=== PATIENT | female | born 1960 | race Caucasian/White ===

== ENCOUNTER 2020-02-18 17:03 | Inpatient (IN) | payer BC ==
[~2020-02-18] VITALS: Ht 162.6 cm; Wt 62.9 kg
--- NOTE | 2020-02-18 17:22 | NUR ---
BIB [facility], PT FROM [place]. DX WITH L CELLEBELLAR CVA. SYMTOMS BEGAN AT 0200 THIS AM, PT OUTSIDE WINDOW FOR TPA ADMIN. PT ARRIVES NEURO INTACT, PT DOES HAVE DIZZINESS THAT REMAINS. BP ELEVATED 183/87, PER EMS THIS HAS BEEN PT NORM
--- NOTE | 2020-02-18 18:01 | NUR ---
ERMD IN TO EVAL PT
[2020-02-18 18:23] LABS: BASOPHILS # (AUTO) 0.04 x10^3/uL (0-0.1); BASOPHILS % (AUTO) 0 % (0-1); EOSINOPHILS % (AUTO) 1 % (1-7); LYMPHOCYTES # (AUTO) 1.64 x10^3/uL (1-3.4); LYMPHOCYTES % (AUTO) 19 % (22-44); MD NO; MEAN CORPUSCULAR HEMOGLOBIN 34.6 pg (27.0-34.8); MEAN CORPUSCULAR HGB CONC 34.1 g/dL (32.4-35.8); MEAN CORPUSCULAR VOLUME 101.6 fL (80-100); MEAN PLATELET VOLUME 8.1 fL (7.4-10.4); MONOCYTES # (AUTO) 0.68 x10^3/uL (0.2-0.8); MONOCYTES % (AUTO) 8 % (2-9); NEUTROPHILS # (AUTO) 6.15 x10^3/uL (1.8-6.8); NEUTROPHILS % (AUTO) 71 % (42-75); PLATELET COUNT 303 x10^3/uL (130-400); RED BLOOD COUNT 3.49 x10^6/uL (3.82-5.3); RED CELL DISTRIBUTION WIDTH 13.4 % (9.6-15.2)
[2020-02-18 18:30] LABS: INTERNATIONAL NORMALIZED RATIO 0.97 (0.93-1.1)
[2020-02-18] MEDS ORDERED: OMNIPAQUE 350 MG/ML, 100ML BOTTLE ONE ×2 (18:47)
--- NOTE | 2020-02-18 18:54 | NUR ---
BEDSIDE REPORT FROM ALON WONG. PT CARE TRANSFERRED AT THIS TIME. PT SITTING UP ON GURNEY, APPEARS COMFORTABLE, STATES SHE WANTS SOME WATER, PT NAD, STATES SHE WAS SENT OVER HERE FROM [place] AFTER HAVING HAVING A STROKE. PT WOKE UP THIS AM WITH LEFT LEG NUMBNESS AND WENT BACK TO SLEEP THEN WAS DIZZY WHEN SHE OFFICIALLY GOT UP AND WENT TO [place] WHERE MRI FOUND A LEFT SIDE STROKE. PT HAS NO NOTICABLE DEFICITS AT THIS TIME. STATES NUMBESS HAS RESOLVED. PT TO BE ADMITTED, WCTM. WAITING FOR ADMIT BED.
[2020-02-18] MEDS ORDERED: BUPR300T94 PO (19:07)
[2020-02-18] MEDS ORDERED: LOSA25TA25 PO (19:07)
[2020-02-18] MEDS ORDERED: CITA20TA6 PO (19:07)
[2020-02-18] MEDS ORDERED: FOLI0.4T2 PO (19:07)
--- NOTE | 2020-02-18 19:07 | NUR ---
pt given water per request. NAD, ambulated to and from restroom with a smooth and steady gait. WCTM. no change in condition
--- NOTE | 2020-02-18 19:54 | NUR ---
REPORT CALLED UP TO MILI WONG. PT RESTING ON MINH, JAIDEN, NO CHANGE IN CONDITION, WAITING FOR ROOM TO BE CLEANED, WCTM.
[2020-02-18] MEDS ORDERED: ASPIRIN 325 MG TABLET PO ONE (19:57)
[2020-02-18] MEDS ORDERED: PROMETHAZINE 25 MG/ML, 1ML IM PRN (21:00)
[2020-02-18] MEDS ORDERED: POLYETHYLENE GLYCOL 17 GM PACKET PO PRN (21:00)
[2020-02-18] MEDS ORDERED: ACETAMINOPHEN 325 MG TABLET PO PRN (21:00)
[2020-02-18] MEDS ORDERED: ONDANSETRON 2MG/ML, 2ML IVPush PRN (21:00)
[2020-02-18] MEDS ORDERED: BISACODYL 10 MG SUPP PR PRN (21:00)
[2020-02-18] MEDS ORDERED: ONDANSETRON ODT 4 MG PO PRN (21:00)
[2020-02-18] MEDS ORDERED: DOCUSATE 100 MG CAPSULE PO PRN (21:00)
[2020-02-18] MEDS ORDERED: HYDROcodone/APAP 5/325 TABLET PO PRN (21:00)
[2020-02-18] MEDS ORDERED: hydrALAzine 20 MG/ML, 1ML IVPush PRN (21:00)
[2020-02-18] MEDS ORDERED: ATORVASTATIN 40 MG TABLET PO SCH (21:00)
[2020-02-18 21:07] LABS: CHOL/HDL RATIO 2.1; FREE T4 (FREE THYROXINE) 0.82 ng/dL (0.76-1.46); LDL/HDL RATIO 0.7 (0.5-3.0)
[2020-02-18 21:35] VITALS: BP 169/90
[2020-02-18 21:36] VITALS: BP 169/90
[2020-02-18] MEDS: HEPARIN 5,000 UNITS/ML, 1ML SQ SCH (21:54)
[2020-02-19 02:00] VITALS: BP 157/78
[2020-02-19 05:16] LABS: BASOPHILS # (AUTO) 0.03 x10^3/uL (0-0.1); BASOPHILS % (AUTO) 0 % (0-1); EOSINOPHILS % (AUTO) 3 % (1-7); LYMPHOCYTES # (AUTO) 2.15 x10^3/uL (1-3.4); LYMPHOCYTES % (AUTO) 28 % (22-44); MD NO; MEAN CORPUSCULAR HEMOGLOBIN 33.9 pg (27.0-34.8); MEAN CORPUSCULAR VOLUME 102.7 fL (80-100); MEAN PLATELET VOLUME 7.9 fL (7.4-10.4); MONOCYTES % (AUTO) 8 % (2-9); NEUTROPHILS # (AUTO) 4.63 x10^3/uL (1.8-6.8); NEUTROPHILS % (AUTO) 61 % (42-75); PLATELET COUNT 274 x10^3/uL (130-400); RED BLOOD COUNT 3.43 x10^6/uL (3.82-5.3); RED CELL DISTRIBUTION WIDTH 13.4 % (9.6-15.2)
[2020-02-19 05:26] LABS: ANION GAP 3 mmol/L (5-15); CALCIUM 8.8 mg/dL (8.5-10.1); CHLORIDE 113 mmol/L (98-107)
[2020-02-19 05:31] LABS: ALANINE AMINOTRANSFERASE 35 U/L (12-78); ALKALINE PHOSPHATASE 30 U/L (45-117); BILIRUBIN,TOTAL 0.3 mg/dL (0.2-1.0); CHOL/HDL RATIO 2.4; CHOLESTEROL, TOTAL 138 mg/dL (140-239); CREATININE 0.95 mg/dL (0.55-1.02); HDL CHOL % 42 % (28-40); HDL CHOLESTEROL (DIRECT) 58 mg/dL (40-60); LDL CHOLESTEROL,CALCULATED 47 mg/dL (54-169); LDL/HDL RATIO 0.8 (0.5-3.0); TOTAL PROTEIN 6.2 g/dL (6.4-8.2); TRIGLYCERIDES 163 mg/dL (50-200); VLDL CHOLESTEROL 33 mg/dL (0-25)
[2020-02-19] MEDS: HEPARIN 5,000 UNITS/ML, 1ML SQ SCH ×2 (05:37→13:12)
[2020-02-19] MEDS ORDERED: ASPIRIN 81 MG TABLET EC PO SCH (06:00)
[2020-02-19 07:19] VITALS: BP 168/89
[2020-02-19 08:23] VITALS: BP 157/93
[2020-02-19] MEDS ORDERED: FOLIC ACID 1 MG TABLET PO SCH (09:00)
[2020-02-19] MEDS ORDERED: CLOPIDOGREL 75 MG TABLET PO ONE (09:00)
[2020-02-19] MEDS ORDERED: LOSARTAN 25MG TABLET PO SCH (09:00)
[2020-02-19] MEDS ORDERED: TEMPLATE NON-FORMULARY MED. (Bupropion Hcl** (Bupropion Xl**) 300 MG) PO SCH (09:00)
[2020-02-19] MEDS ORDERED: CLOPIDOGREL 75 MG TABLET PO SCH (09:00)
[2020-02-19] MEDS ORDERED: CITALOPRAM 20 MG TABLET PO SCH (09:00)
[2020-02-19] MEDS ORDERED: BUPROPION SR 150 MG TABLET PO SCH (09:33)
[2020-02-19 12:31] VITALS: BP 160/82
[2020-02-19] MEDS ORDERED: CLOP75TA PO (14:00)
[2020-02-19] MEDS ORDERED: ATOR40TA78 PO (14:00)
[2020-02-19] MEDS ORDERED: ASPI81TA45 PO (14:00)
[2020-02-19] MEDS ORDERED: LOSA50TA14 PO (14:41)
== END 2020-02-19 16:46 | disposition home or self-care (01) | DRG 66 ==
LOC: ED 18:11 → 4EST 21:20
PROVIDERS: ADMIT Internal Medicine; ATTEND Internal Medicine
DX: I61.4 Nontraumatic intracerebral hemorrhage in cerebellum (principal); F32.9 Major depressive disorder, single episode, unspecified; I61.3 Nontraumatic intracerebral hemorrhage in brain stem; I10 Essential (primary) hypertension
CPT/HCPCS: 36415; 70450; 70496; 70498; 80053; 80061; 82306; 82607; 83036; 83735; 84439; 84443; 85025; 85610; 85730; 93005; G0378; J1644; Q9967; 92523-GN